=== PATIENT | female | born 1975 | race American Indian/Alaskan Native ===

== ENCOUNTER 2018-02-17 22:09 | Emergency (ER) | payer OTHER ==
[2018-02-17 22:20] VITALS: BP 128/87; PULSE 89; TEMP 98.3; O2SAT 98
[2018-02-17] MEDS ORDERED: Tetanus/Diphtheria Toxoids 0.5 ml Syringe IM ONE ×2 (23:29→23:33)
[2018-02-17] MEDS ORDERED: Bacitracin 500 Units/gm Oint Foilpak UD TOP STA (23:30)
[2018-02-17] MEDS ORDERED: Bacitracin 500 Units/gm Oint Foilpak UD ONE (23:32)
--- NOTE | 2018-02-17 23:43 | C.PDOC ---
History Of Present Illness 42 y/o female presents to the ED for evaluation of a finger laceration, sustained this evening. Patient states that while chopping some herbs she accidentally sliced her left index finger with a sharp knife. Her then cleaned the wound, applied antibiotic ointment and a bandage. Despite dressing the wound, bleeding continued prompting patient to come to the ED. She denies any numbness, tingling, or other injuries. Tetanus is not up to date. Time Seen by Provider: 02/17/18 22:26 Chief Complaint (Nursing): Abnormal Skin Integrity History Per: Patient History/Exam Limitations: no limitations Onset/Duration Of Symptoms: Mins Current Symptoms Are (Timing): Still Present Past Medical History Reviewed: Historical Data, Nursing Documentation, Vital Signs Vital Signs: Last Vital Signs Temp 98.3 F 02/17/18 22:14 Pulse 89 02/17/18 22:14 Resp 20 02/17/18 23:56 BP 128/87 02/17/18 22:14 Pulse Ox 98 02/17/18 23:51 - Medical History PMH: Anemia, Arthritis, Asthma, HTN Surgical History: No Surg Hx Family History: States: No Known Family Hx - Social History Hx Tobacco Use: No Hx Alcohol Use: Yes Hx Substance Use: No - Immunization History Hx Tetanus Toxoid Vaccination: No Hx Influenza Vaccination: No Hx Pneumococcal Vaccination: No Review Of Systems Except As Marked, All Systems Reviewed And Found Negative. Skin: Positive for: Lesions (to left index finger) Neurological: Negative for: Weakness, Numbness Physical Exam - Physical Exam Appears: Well, Non-toxic, No Acute Distress Skin: Normal Color, Warm, Dry Head: Atraumatic, Normacephalic Eye(s): bilateral: Normal Inspection Neck: Normal ROM Chest: Symmetrical Respiratory: No Accessory Muscle Use Extremity: Normal ROM, Capillary Refill (< 2 sec), No Deformity, No Swelling, Other (1.5 cm skin flap noted to distal left 2nd digit, not involving nail margin; minimal active bleeding) Pulses: Left Radial: Normal, Right Radial: Normal Neurological/Psych: Oriented x3 ED Course And Treatment O2 Sat by Pulse Oximetry: 98 (RA) Pulse Ox Interpretation: Normal Progress Note: Laceration repaired without difficulty. Patient tolerated procedure well. Sterile dressing applied to wound. Patient received Tetanus booster in the ED. Patient is stable for discharge home. Counseled regarding diagnosis and wound care instructions. Patient advised to follow up for suture removal in 7-10 days and use Bacitracin as prescribed. Laceration - Laceration Repair L index finger Wound Length (In cm): 1.5 Description Of Wound: Linear Wound Cleansed With: Sterile Saline Anesthesia: Lidocaine 2% (digital block) Wound Examination: Irrigated With Saline Wound Closure: Suture Suture Technique And Material Used: Interrupted, Nylon (4-0, three stiches) Wound Complexity: Simple Disposition Counseled Patient/Family Regarding: Diagnosis, Need For Followup - Disposition Disposition: HOME/ ROUTINE Disposition Time: 23:44 Condition: STABLE Additional Instructions: Follow up with your PMD within 2-3 days. Suture removal in 7-10 days. Return to ED immediately if feel worse. Prescriptions: Bacitracin OINT 1 applic TP TID #45 g Instructions: Laceration Repair With Stitches (DC) Forms: [employer] (Setswana) - POA Present On Arrival: None - Clinical Impression Clinical Impression: Finger laceration - PA / DOCK [employer] / Resident Statement MD/DO has reviewed & agrees with the documentation as recorded. - Scribe Statement The provider has reviewed the documentation as recorded by the Scribe (Kelsey Anderson) All medical record entries made by the Scribe were at my direction and personally dictated by me. I have reviewed the chart and agree that the record accurately reflects my personal performance of the history, physical exam, medical decision making, and the department course for this patient. I have also personally directed, reviewed, and agree with the discharge instructions and disposition.
--- NOTE | 2018-02-17 23:44 | C.PDOC ---
Time Seen by Provider: 02/17/18 22:26 Chief Complaint (Nursing): Abnormal Skin Integrity Past Medical History Vital Signs: Last Vital Signs Temp 98.3 F 02/17/18 22:14 Pulse 89 02/17/18 22:14 Resp 16 02/17/18 22:14 BP 128/87 02/17/18 22:14 Pulse Ox 98 02/17/18 22:14 - Medical History PMH: Anemia, Arthritis, Asthma, HTN - Social History Hx Alcohol Use: Yes Hx Substance Use: No - Immunization History Hx Tetanus Toxoid Vaccination: No Hx Influenza Vaccination: No Hx Pneumococcal Vaccination: No ED Course And Treatment O2 Sat by Pulse Oximetry: 98 Disposition - Disposition Disposition: HOME/ ROUTINE Disposition Time: 23:44 Condition: STABLE Additional Instructions: Follow up with your PMD within 2-3 days. Suture removal in 7-10 days. Return to ED immediately if feel worse. Prescriptions: Bacitracin OINT 1 applic TP TID #45 g Instructions: Laceration Repair With Stitches (DC) - Clinical Impression Clinical Impression: Finger laceration
[2018-02-17 23:56] VITALS: RESP 20
== END 2018-02-17 23:55 | disposition home or self-care (01) ==
LOC: C.ER 22:09
DX: S61.211A Laceration without foreign body of left index finger without damage to nail, initial encounter (principal); W26.0XXA Contact with knife, initial encounter; Y93.G1 Activity, food preparation and clean up; Y92.000 Kitchen of unspecified non-institutional (private) residence as the place of occurrence of the external cause; Z23 Encounter for immunization